=== PATIENT | male | born 1955 ===

== ENCOUNTER 2016-11-02 23:13 | Inpatient (IN) | payer BC ==
--- NOTE | 2016-11-03 00:06 | ED PDOC ---
Arrival/HPI - General Chief Complaint: Shortness Of Breath Time Seen by Provider: 11/02/16 23:32 Historian: Patient - History of Present Illness Narrative History of Present Illness (Text): 11/03/16 00:02 A 60 year old male whose past medical history includes, presents to the emergency department with 2 day duration throat pain. The patient notes that he went to his PMD's office today and received a flu shot. He also notes that he is experiencing near syncopal sensation and shortness of breath and chest discomfort. He denies fevers, chills, headache, abdominal pain, nausea, vomiting , diarrhea, back pain, dyspnea on exertion, or any other complaint. Time/Duration: Prior to Arrival Symptom Onset: Sudden Symptom Course: Unchanged Activities at Onset: Rest, Light Context: Home Past Medical History - Provider Review Nursing Documentation Reviewed: Yes - Psychiatric Hx Substance Use: No Family/Social History - Physician Review Nursing Documentation Reviewed: Yes Family/Social History: No Known Family HX Smoking Status: Never Smoked Hx Alcohol Use: No Hx Substance Use: No Allergies/Home Meds Allergies/Adverse Reactions: Allergies No Known Allergies Allergy (Verified 11/02/16 23:18) Home Medications: Home Meds Medication Instructions Recorded Confirmed Unobtainable 11/03/16 11/03/16 Review of Systems - Physician Review All systems were reviewed & negative as marked: Yes Physical Exam - Physical Exam Narrative Physical Exam (Text): - Review of Systems Constitutional: Normal. absent: Fatigue, Weight Change, Fevers Eyes: Normal ENT: (+) Sore throat Respiratory: (+) Near syncopal shortness of breath. absent: Cough, Sputum Cardiovascular: (+) Chest discomfort, near syncopal sensation. absent: Palpitations Gastrointestinal: Normal absent: Abdominal pain, Diarrhea, Nausea, Vomiting Genitourinary: Normal. absent: Dysuria, Frequency, Hematuria Musculoskeletal: Normal. absent: Arthralgias, Back Pain, Neck Pain Skin: Normal Neurological: Normal. absent: Focal Weakness Endocrine: Normal Hemo/Lymphatic: Normal Psychiatric: Normal - Physical exam Patient appears age appropriate, speaking full sentences without difficulty - Systems Exam Head: Present: Atraumatic, Normocephalic Pupils: Present: PERRL Extraocular Muscles: Present: EOMI Conjunctiva: Present: Normal Mouth: Present: Moist Mucous Membranes Neck: Present: Normal Range of Motion. No: MIDLINE TENDERNESS, Paraspinal Tenderness Respiratory/Chest: Present: Clear to Auscultation, Good Air Exchange. No: Respiratory Distress, Accessory Muscle Use, Tachypneic Cardiovascular: Present: Regular Rate and Rhythm, Normal S1, S2, Peripheral Pulses Present. No: Murmurs Abdomen: Present: Normal Bowel Sounds, No: Tenderness, Peritoneal Signs, Rebound, Guarding, Distention Back: Present: Normal Inspection. No: Midline Tenderness, Paraspinal Tenderness Upper Extremity: Present: Normal Inspection. No: Cyanosis, Edema Lower Extremity: Present: Normal Inspection. No: Edema Neurological: Present: GCS=15, Speech Normal, cranial nerves II through XII fully intact with no cerebellar abnormality, neuro-sensory fully intact. No focal neurological deficits. Skin: Present: Warm, Dry, Normal Color. No: Rashes Lymphatic: Present: OX3, NI, NC Psychiatric: Present: Alert, Oriented x 3, Normal Insight, Normal Concentration Vital Signs Reviewed: Yes Vital Signs Temp Pulse Resp BP Pulse Ox 11/02/16 23:25 20 98 11/02/16 23:18 99.0 F 101 H 25 H 143/92 H 100 Temperature: Afebrile Blood Pressure: Hypertensive Pulse: Tachycardic Respiratory Rate: Tachypneic Appearance: Positive for: Well-Appearing, Non-Toxic, Comfortable Pain Distress: None Mental Status: Positive for: Alert and Oriented X 3 - Systems Exam Pharnyx: Present: Normal. No: ERYTHEMA, EXUDATE, TONSILS ENLARGED, Peritonsilar Swelling, Uvular Deviation, Muffled/Hoarse Voice, Strider, Soft Palate/Uvular Edema Medical Decision Making ED Course and Treatment: 11/03/16 00:16 Impression: A 60 year old male with sore throat and near syncopal sensation, shortness of breath, and chest discomfort. On exam, no significant findings. Plan: -- Head/ Neck CT -- EKG -- Chest X-Ray -- Labs -- Blood Culture -- Cleocin and Decadron -- Reassess and disposition Progress Notes: EKG: Ordered, reviewed, and independently interpreted the EKG. Rate : 90 BPM Rhythm : NSR Interpretation : No ST-segment elevations CT Head Without Intravenous 1. No acute intracranial abnormality. 2. Incidental/non-acute findings are described above. Dictated and Authenticated by: Surinder Landon MD 11/03/2016 3:35 AM Eastern Time ([place] & [place]) CT Neck With Intravenous Contrast IMPRESSION: 1. No acute findings. 2. If symptoms persist, suggest direct visualization. Dictated and Authenticated by: Surinder Landon MD 11/03/2016 3:38 AM Eastern Time ([place] & [place]) 11/03/16 03:51: Chest xray shows no cardiomegaly, no pneumothorax, no effusion, no infiltrates. Read and interpreted by me. 11/03/16 03:59: Patient states that he does not have a PMD at [facility]. Discussed case with Dr. Cheung in detail, she accepts pt into her service. Patient is aware of and agrees with the plan. - Lab Interpretations Lab Results: 11/02/16 23:20 11/02/16 23:20 Lab Results 11/02/16 23:20: Sodium 142, Potassium 3.7, Chloride 104, Carbon Dioxide 27, Anion Gap 15, BUN 17, Creatinine 0.8, Est GFR ( Amer) > 60, Est GFR (Non- Af Amer) > 60, Random Glucose 96, Calcium 9.2, Total Bilirubin 0.5, AST 39, ALT 48, Alkaline Phosphatase 102, Lactate Dehydrogenase 417, Total Creatine Kinase 87, Troponin I < 0.01, NT-Pro-B Natriuret Pep 42.4, Total Protein 8.1, Albumin 4.5, Globulin 3.6, Albumin/Globulin Ratio 1.3 11/02/16 23:20: PT 9.9, INR 0.92 L, APTT 28.7 11/02/16 23:20: WBC 7.3, RBC 4.53, Hgb 13.7 L, Hct 40.0 L, MCV 88.3, MCH 30.2, MCHC 34.3, RDW 13.0, Plt Count 219, MPV 9.4, Gran % 57.0, Lymph % (Auto) 29.7, Howell % (Auto) 9.8 H, Eos % (Auto) 3.2, Baso % (Auto) 0.3, Gran # 4.16, Lymph # 2.2, Howell # 0.7 H, Eos # 0.2, Baso # 0.02 I have reviewed the lab results: Yes - RAD Interpretation Radiology Orders: 11/02/16 23:54 HEAD W/O CONTRAST [CT] Stat NECK SOFT TISSUE W/CONTRAST [CT] Stat CHEST PORTABLE [RAD] Stat - EKG Interpretation Interpreted by ED Physician: Yes Type: 12 lead EKG - Medication Orders Current Medication Orders: Discontinued Medications Dexamethasone (Decadron Inj) 10 mg IM STAT STA Stop: 11/02/16 23:55 Last Admin: 11/03/16 00:39 Dose: 10 mg Clindamycin Phosphate 600 mg/ (Sodium Chloride) 54 mls @ 108 mls/hr IVPB STAT STA PRN Reason: Protocol Stop: 11/03/16 00:24 Last Admin: 11/03/16 01:05 Dose: 108 mls/hr Iohexol (Omnipaque 350 100 Ml) Confirm Administered Dose 350 mg .ROUTE .[facility] Stop: 11/03/16 02:23 - Scribe Statement The provider has reviewed the documentation as recorded by the Scribe Eevlin Henry Provider Scribe Attestation: All medical record entries made by the Scribe were at my direction and personally dictated by me. I have reviewed the chart and agree that the record accurately reflects my personal performance of the history, physical exam, medical decision making, and the department course for this patient. I have also personally directed, reviewed, and agree with the discharge instructions and disposition Disposition/Present on Arrival - Present on Arrival Any Indicators Present on Arrival: No History of DVT/PE: No History of Uncontrolled Diabetes: No Urinary Catheter: No History of Decub. Ulcer: No History Surgical Site Infection Following: None - Disposition Have Diagnosis and Disposition been Completed?: Yes Diagnosis: Chest pain Disposition: HOSPITALIZED Disposition Time: 03:59 Patient Plan: Observation Condition: FAIR Discharge Instructions (ExitCare): Chest Pain (ED) Forms: [employer] ([employer])
[2016-11-03 00:41] LABS: BASO # 0.02 K/mm3 (0.0-2.0); BASO % 0.3 % (0.0-3.0); EOS # 0.2 (0.0-0.7); EOS % 3.2 % (1.5-5.0); GRAN # 4.16 (1.4-6.5); LYMPH # 2.2 (1.2-3.4); LYMPH % 29.7 % (22.0-35.0); MEAN CELL VOLUME 88.3 fl (80.0-105.0); MEAN CORPUSCULAR HEMOGLOBIN 30.2 pg (25.0-35.0); MEAN CORPUSCULAR HGB CONC 34.3 g/dl (31.0-37.0); MEAN PLATELET VOLUME 9.4 fl (7.0-11.0); MONO # 0.7 (0.1-0.6); MONO % 9.8 % (1.0-6.0); WHITE BLOOD COUNT 7.3 10^3/ul (4.5-11.0)
[2016-11-03 00:47] LABS: ALB/GLOB RATIO 1.3 (1.1-1.8); ALKALINE PHOSPHATASE 102 U/L (38-126); ALT/SGPT 48 U/L (7-56); AST/SGOT 39 U/L (17-59); BILIRUBIN,TOTAL 0.5 mg/dL (0.2-1.3); BLOOD UREA NITROGEN 17 mg/dL (7-21); CALCIUM 9.2 mg/dL (8.4-10.5); CARBON DIOXIDE 27 mmol/L (21-33); CHLORIDE 104 mmol/L (98-107); GFR AFRICAN-AMERICAN > 60; GLUCOSE,RANDOM 96 mg/dL (70-110); POTASSIUM 3.7 mmol/L (3.6-5.0); SODIUM 142 mmol/L (132-148); TOTAL PROTEIN 8.1 g/dL (5.8-8.3)
[2016-11-03 00:48] LABS: INR 0.92 (0.93-1.08); PARTIAL THROMBOPLASTIN TIME 28.7 Seconds (23.7-30.8)
[2016-11-03 01:04] LABS: TROPONIN I < 0.01 ng/mL
[2016-11-03] MEDS ORDERED: Iohexol 350 MG/100 ML VIAL ONE (02:22)
--- NOTE | 2016-11-03 03:35 | CT ---
EXAM: CT Head Without Intravenous Contrast CLINICAL HISTORY: 60 years old, male; Signs and symptoms; Syncope and collapse; Additional info: Near syncope TECHNIQUE: Axial computed tomography images of the head/brain without intravenous contrast. All CT scans at this facility use one or more dose reduction techniques, viz.: automated exposure control; ma/kV adjustment per patient size (including targeted exams where dose is matched to indication; i.e. head); or iterative reconstruction technique. COMPARISON: No relevant prior studies available. FINDINGS: Brain: No intracranial hemorrhage. No mass. No definite edema. Ventricles: No hydrocephalus. Bones/joints: No acute fracture. Soft tissues: Unremarkable. Sinuses: Scattered minimal mucosal thickening. Mastoid air cells: No mastoid effusion. Orbits: Unremarkable as visualized. IMPRESSION: 1. No acute intracranial abnormality. 2. Incidental/non-acute findings are described above.
--- NOTE | 2016-11-03 03:38 | CT ---
EXAM: CT Neck With Intravenous Contrast CLINICAL HISTORY: 60 years old, male; Pain; Throat pain; Additional info: Sore throat TECHNIQUE: Axial computed tomography images of the neck with intravenous contrast. All CT scans at this facility use one or more dose reduction techniques, viz.: automated exposure control; ma/kV adjustment per patient size (including targeted exams where dose is matched to indication; i.e. head); or iterative reconstruction technique. Coronal and sagittal reformatted images were created and reviewed. CONTRAST: 96 mL of OMNI 350 administered intravenously. COMPARISON: No relevant prior studies available. FINDINGS: Limitations: Motion artifact - mild. Nasopharynx: Unremarkable. Oropharynx: No significant tonsillar enlargement. No peritonsillar abscess. Hypopharynx: Unremarkable. Larynx: Unremarkable. Normal epiglottis. Trachea: Unremarkable. Retropharyngeal space: Unremarkable. Submandibular/parotid glands: Unremarkable. Glands are normal in size. Thyroid: No enlarged or calcified nodules. Bones/joints: Mild degenerative changes of spine. No acute fracture. Soft tissues: Unremarkable. Vasculature: No acute findings. Lymph nodes: No pathologically enlarged lymph nodes. Sinuses: Scattered minimal mucosal thickening. Lung apices: Minimal bullous changes. IMPRESSION: 1.No acute findings. 2. If symptoms persist, suggest direct visualization.
--- NOTE | 2016-11-03 09:43 | RAD ---
HISTORY: cough COMPARISON: No prior. FINDINGS: LUNGS: No active pulmonary disease. PLEURA: No significant pleural effusion identified, no pneumothorax apparent. CARDIOVASCULAR: Normal. OSSEOUS STRUCTURES: No significant abnormalities. VISUALIZED UPPER ABDOMEN: Normal. OTHER FINDINGS: None. IMPRESSION: No active disease.
[2016-11-03] MEDS ORDERED: cefTRIAXone 1 gm 100 ML IVPB SCH (10:00)
[2016-11-03 10:15] LABS: CHOLESTEROL 222 mg/dL (130-200)
[2016-11-03 10:28] LABS: TROPONIN I < 0.01 ng/mL
[2016-11-03] MEDS: cefTRIAXone 1 gm 1 GM/100 ML BAG IVPB SCH (10:35)
[2016-11-03 13:09] VITALS: BMI 31.7
--- NOTE | 2016-11-03 16:50 | CARD ---
APPROVED REPORT EKG Measurement Heart [id number] [id number] <Conclusion> Normal sinus rhythm Left axis deviation
[2016-11-03] MEDS: Albuterol-Ipratrop 3 mg / 0.5 (3 ml) UD IH SCH (20:08)
--- NOTE | 2016-11-03 21:59 | CON ---
DATE: 11/03/2016 CONSULT SERVICE: Cardiology. CARDIOLOGY PHYSICIAN: Dr. Barbara Jennings. REASON FOR THE CONSULTATION: Followup shortness of breath, cough, chest pain on coughing. 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 After this, the patient experienced more shortness of breath, more neck pain and started chest pain and coughing. Denies any chest pain prior to this. Denies any dyspnea on exertion or shortness of breath on exertion. PAST MEDICAL HISTORY: Nothing significant. CURRENT MEDICATIONS AT HOME: Denies any medications taking on a regular basis. SOCIAL HISTORY: Denies smoking. Beer, 1-2 cans at the weekend. 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 FAMILY HISTORY: No significant history of coronary artery disease. REVIEW OF SYSTEMS: As per HPI. PHYSICAL EXAMINATION VITAL SIGNS: As follows: Temp 99, heart rate 78 and blood pressure 118/79. HEENT: PERRLA. Extraocular muscles intact. NECK: Supple. No carotid bruits. No thyromegaly. CHEST: Clear to auscultation. HEART: S1 and S2 regular. ABDOMEN: Soft. EXTREMITIES: Clubbing or cyanosis negative. LABORATORY DATA: Blood work up as follows; WBC 7.3, hemoglobin 13, hematocrit 40.0, platelet count 219. Chemistries shows sodium 140, potassium 3.0, chloride 104, carbon dioxide 27, anion gap of 15, BUN 17, creatinine 0.8. Troponin 0.01. EKG shows normal sinus, no acute ST-T changes noted, left axis deviation, left atrial enlargement, heart rate of 90. IMPRESSION: Rule out upper respiratory tract infection, rule out bronchitis, so far no evidence of acute myocardial infarction. RECOMMENDATION: We will get second set of troponin. We will get echo to assess LV function. Because of multiple results, suggest stress test as an outpatient. Discussed with the patient and arrangement has made to do a stress test in 2 weeks as an outpatient. If the second troponin which ordered now becomes negative and flat, we will discontinue telemetry. Consider pulmonary evaluation and pulmonary workup. We will follow with you. Thank you Dr. Russell for providing me the opportunity in taking care of Luis Shields. Barbara Jennings MD [facility] # [id number]
[2016-11-04] MEDS: Albuterol-Ipratrop 3 mg / 0.5 (3 ml) UD IH SCH ×4 (01:14→21:00)
--- NOTE | 2016-11-04 03:01 | CON ---
PULMONARY CONSULT DATE: 11/03/2016 REFERRING PHYSICIAN: Dr. Russell. REASON FOR CONSULT: Cough, shortness of breath, fever. HISTORY OF PRESENT ILLNESS: This is a 60-year-old gentleman without any significant past medical history, been having rhinitis, cough, shortness of breath last 2 days. Apparently, he received flu shot recently. CAT scan of the neck and head done, which is unremarkable other than may be questionable some sinusitis. No nausea, no vomiting, no diarrhea. No leg pain or leg swelling. Does not know if he snore, daytime sleepy and tired. PAST MEDICAL HISTORY: There is no cardiopulmonary disease. ALLERGIES: NONE KNOWN. SOCIAL HISTORY: He is a smoker. Denied any alcohol use. FAMILY HISTORY: No significant cardiopulmonary disease reported. MEDICATIONS: He is on Lipitor 10 mg daily, Pepcid 40 mg daily, Rocephin 1 g daily. He did received Decadron 10 mg in ER on admission and also clindamycin 600 mg 1 dose. REVIEW OF SYSTEMS: Has some headache, rhinitis, facial discomfort, short of breath. No specified chest pain. No abdominal pain. no dysuria, no leg pain or leg swelling, does not know if he snores, but daytime sleepy. PHYSICAL EXAMINATION: GENERAL: In no acute distress. VITAL SIGNS: Temperature is 98, heart rate 84, respiratory rate is 18, blood pressure 112/88, and pulse ox 98% on 2 L nasal cannula. HEENT: Moist mucous membrane. Crowded airway. Mallampati score is IV. Nasal mucosa is mildly erythematous. Mild maxillary area tenderness. LUNGS: Has a few scattered rhonchi, overall fair air flow. HEART: S1 and S2. ABDOMEN: Soft and nontender. No organomegaly. EXTREMITIES: No edema. NEUROLOGIC: Awake and alert. Follows simple command. LABORATORY DATA: Shows hemoglobin 13.7, hematocrit 47.0, WBC 7.3, platelet count is 219. INR is 0.92. PTT is 29. Sodium 142, potassium 2.7, chloride 104, bicarbonate 27, BUN 17, creatinine 0.8, glucose 96, calcium 9.2, total bilirubin 0.5, AST 39, ALT 48, alkaline phosphatase is 102, LDH 360, proBNP 42, albumin 4.5, cholesterol is 222, TSH is 0.11. IMPRESSION AND PLAN: Seems like early sinusitis and bronchiolitis, may have a component of sleep apnea syndrome, hyperlipidemia. I agreed to rule out cardiac component of shortness of breath. We will continue antibiotics. Add p.o. prednisone, inhaled bronchodilators, gastric prophylaxis, DVT prophylaxis. We will recommend outpatient PFT and sleep study, asked the patient to stop smoking, could be discharged after cardiac workup if it is negative. The patient is urged to stop smoking. Thank you and we will follow with you. Barbara Cerna MD
--- NOTE | 2016-11-04 03:33 | CP.PCM.PCO ---
Physician Communication Note - Physician Communication Note Physician Communication Note: chart reviewed full consult to follow
[2016-11-04 10:52] VITALS: RESP 20
[2016-11-04] MEDS: cefTRIAXone 1 gm 1 GM/100 ML BAG IVPB SCH (11:25)
--- NOTE | 2016-11-04 13:41 | CARD ---
APPROVED REPORT EXAM: Two-dimensional and M-mode echocardiogram with Doppler and color Doppler. INDICATION Chest Pain LVFX 2D DIMENSIONS Left Atrium (2D)3.7 (1.6-4.0cm)IVSd1.1 (0.7-1.1cm) Aortic Root (2D)3.6 (2.0-3.7cm)LVDd5.0 (3.9-5.9cm) PWd1.2 (0.7-1.1cm)LVDs3.5 (2.5-4.0cm) FS (%) 30.9 %LVEF (%)58.4 (>50%) M-Mode DIMENSIONS Aortic Root3.60 (2.2-3.7cm)Aortic Cusp Exc.2.00 (1.5-2.0cm) Aortic Valve AoV Peak Vesbewcy183.0cm/José Miguel Peak GR.12mmHg Mitral Valve MV E Sofabaav50.4cm/sMV A Uexhuyir43.3cm/sE/A ratio1.4 TDI Lateral E' Peak V10.10cm/sMedial E' Peak V7.51cm/sE/Lateral E'9.3 E/Medial E'12.6 Pulmonary Valve PV Peak Zjiuneja61.9cm/sPV Peak Grad.3mmHg Tricuspid Valve TR Peak Fniczhsd852yq/sRAP [id number] Peak Gr.36mmHg [id number] LEFT VENTRICLE The left ventricle is normal size. There is borderline concentric left ventricular hypertrophy. The left ventricular function is normal.EF-55-60% There is normal LV segmental wall motion. The left ventricular diastolic function is normal. No left ventricle thrombus noted on this study. There is no ventricular septal defect visualized. There is no left ventricular aneurysm. There is no mass noted in the left ventricle. RIGHT VENTRICLE The right ventricle is normal size. There is normal right ventricular wall thickness. The right ventricular systolic function is normal. ATRIA The left atrium size is normal. The right atrium size is normal. The interatrial septum is intact with no evidence for an atrial septal defect. AORTIC VALVE The aortic valve is thickened but opens well. No aortic regurgitation is present. There is no aortic valvular stenosis. There is no aortic valvular vegetation. MITRAL VALVE The mitral valve is thickened but opens well. Mitral regurgitation is mild. There is no mitral valve stenosis. There is no evidence of mitral valve prolapse. TRICUSPID VALVE The tricuspid valve leaflets are thickened , but open well. There is mild tricuspid regurgitation.RVSP-46 mmof hg. There is no tricuspid valve stenosis. There is no tricuspid valve prolapse or vegetation. PULMONIC VALVE The pulmonary valve is normal in structure. There is no pulmonic valvular regurgitation. There is no pulmonic valvular stenosis. GREAT VESSELS The aortic root is normal in size. The ascending aorta is normal in size. The pulmonary artery is normal. The IVC is normal in size and collapses >50% with inspiration. PERICARDIAL EFFUSION There is no pleural effusion. There is no pericardial effusion. <Conclusion> NOrmal chamber Size. EF-55-60% Mitral regurgitation is mild. There is mild tricuspid regurgitation.RVSP-46 mmof hg. There is no pericardial effusion. The IVC is normal in size and collapses >50% with inspiration. No Vegetation or thrombus noted.
[2016-11-04 16:30] VITALS: BP 107/73; PULSE 87; TEMP 98.1; O2SAT 98
[2016-11-04] MEDS: Fluticasone Nasal 50 mcg/Spray NS SCH (16:45)
--- NOTE | 2016-11-04 17:35 | CP.PCM.CON ---
<Salima Cardozo - Last Filed: 11/04/16 18:09> History of Present Illness - History of Present Illness History of Present Illness: General Surgery Consult for Dr. Lewis 60M presents with no past medical history for 2 day duration of throat pain. General surgery consulted for hemorrhoids. Patient states he had a colonoscopy 2 months ago and doctor found two hemorrrhoids. Patient was referred to a surgeon at [facility] to do a laser removal of the hemorrhoid. Patient states he's had hemorrhoids for years and the hemorrhoids make it difficult for bowel movements. Patient states he only wants surgery at this hospital if they can do laser hemorrhoid treatment or "burning" of the hemorrhoid. PMH: HTN, HLD PSH: right wrist repair of tendon, hemorrhoidectomy x 2, R knee arthroscopy/ aspiration (Patient does not remember). Past Patient History - Past Social History Smoking Status: Former Smoker - CARDIAC Hx Hypercholesterolemia: Yes Hx Hypertension: Yes - MUSCULOSKELETAL/RHEUMATOLOGICAL Hx Arthritis: Yes Hx Falls: No - PSYCHIATRIC Hx Depression: Yes Hx Substance Use: No Meds Allergies/Adverse Reactions: Allergies Allergy/AdvReac Type Severity Reaction Status Date / Time No Known Allergies Allergy Verified 11/02/16 23:18 - Medications Medications: Current Medications Albuterol/Ipratropium (Duoneb 3 Mg/0.5 Mg (3 Ml) Ud) 3 ml IH [id number] [facility] Last Admin: 11/04/16 13:36 Dose: 3 ml Atorvastatin Calcium (Lipitor) 10 mg PO DIN KAYDEN Doxycycline Hyclate (Doryx) 100 mg PO Q12 KAYDEN PRN Reason: Protocol Last Admin: 11/04/16 11:24 Dose: 100 mg Famotidine (Pepcid) 40 mg PO HS [facility] Last Admin: 11/03/16 22:05 Dose: 40 mg Fluticasone Propionate (Flonase) 1 actuation NS DAILY [facility] Last Admin: 11/04/16 16:45 Dose: 1 dose Ceftriaxone Sodium (Rocephin 1 Gram Ivpb) 1 gm in 100 mls @ 100 mls/hr IVPB DAILY [facility]AY[facility] PRN Reason: Protocol Last Admin: 11/04/16 11:25 Dose: 100 mls/hr Montelukast Sodium (Singulair) 10 mg PO HS [facility] Last Admin: 11/03/16 21:48 Dose: 10 mg Prednisone (Prednisone Tab) 20 mg PO DAILY [facility] Last Admin: 11/04/16 11:25 Dose: 20 mg Physical Exam - Constitutional Appears: Non-toxic - Head Exam Head Exam: NORMAL INSPECTION - Eye Exam Eye Exam: EOMI, Normal appearance - ENT Exam ENT Exam: Mucous Membranes Moist - Neck Exam Neck exam: Positive for: Full Rom - Respiratory Exam Respiratory Exam: Clear to Auscultation Bilateral, NORMAL BREATHING PATTERN. absent: Accessory Muscle Use, Respiratory Distress - Cardiovascular Exam Cardiovascular Exam: REGULAR RHYTHM. absent: Bradycardia, Tachycardia - GI/Abdominal Exam GI & Abdominal Exam: Normal Bowel Sounds, Soft. absent: Diminished Bowel Sounds , Tenderness - Rectal Exam Rectal Exam: Hemorrhoids. absent: Black Stool Additional comments: two internal hemorroids felt on KENDALL - Exam Exam: NORMAL INSPECTION - Extremities Exam Extremities exam: Positive for: full ROM, normal inspection. Negative for: calf tenderness, pedal edema - Neurological Exam Neurological exam: Alert, Normal Gait, Oriented x3 - Psychiatric Exam Psychiatric exam: Normal Affect, Normal Mood - Skin Skin Exam: Dry, Intact, Normal Color, Warm Results - Vital Signs Recent Vital Signs: Last Vital Signs Temp 98.1 F 11/04/16 16:28 Pulse 87 11/04/16 16:28 Resp 20 11/04/16 16:28 BP 107/73 11/04/16 16:28 Pulse Ox 98 11/04/16 16:28 - Labs Result Diagrams: 11/02/16 23:20 11/02/16 23:20 Assessment & Plan - Assessment and Plan (Free Text) Assessment: 60M hemorrhoids Plan: stool softeners sitz baths PRN c/w current medical management c/w pain control Salima Cardozo DO PGY1 - Date & Time Date: 11/04/16 Time: 17:35 <Jeancarlos Lewis - Last Filed: 11/06/16 10:20> Results - Vital Signs Recent Vital Signs: Last Vital Signs Temp 98.1 F 11/04/16 18:49 Pulse 87 11/04/16 18:49 Resp 20 11/04/16 18:49 BP 107/73 11/04/16 18:49 Pulse Ox 98 11/04/16 18:49 - Labs Result Diagrams: 11/05/16 08:00 11/05/16 08:00 Labs: Laboratory Results - last 24 hr 11/05/16 08:00 Vitamin B12 236 L Folate 9.1 Assessment & Plan - Assessment and Plan (Free Text) Assessment: Dx Constipation/Int Hemorrhoids Patient has no interest in surgery here(?Insuranc) This consult done under my direct supervision Francisco Lewis MD FACS
--- NOTE | 2016-11-04 17:41 | CP.PCM.CON ---
History of Present Illness - History of Present Illness History of Present Illness: Infectious Disease Consultation: November 04, 2016 60 yo male with presentation of sore throat to his PMDs office. He was given a flu shot as part of that visit. The patient developed cough, shortness of breath, neck pain, throat pain, and sore throat shortly after the flu shot was given. 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 He denies any significant medical history. He does not need to take any medications on an ongoing basis. Currently started on Rocephin for antibiotic coverage. PMHx: none given PSHx: none given Allergies: NKDA Social Hx: No tobacco or illicit drug use. Social EtOH use. Active Medications Albuterol/Ipratropium (Duoneb 3 Mg/0.5 Mg (3 Ml) Ud) 3 ml IH [id number] [facility] Last Admin: 11/04/16 13:36 Dose: 3 ml Atorvastatin Calcium (Lipitor) 10 mg PO DIN [facility] Doxycycline Hyclate (Doryx) 100 mg PO Q12 [facility] PRN Reason: Protocol Last Admin: 11/04/16 11:24 Dose: 100 mg Famotidine (Pepcid) 40 mg PO HS [facility] Last Admin: 11/03/16 22:05 Dose: 40 mg Fluticasone Propionate (Flonase) 1 actuation NS DAILY [facility] Last Admin: 11/04/16 16:45 Dose: 1 dose Ceftriaxone Sodium (Rocephin 1 Gram Ivpb) 1 gm in 100 mls @ 100 mls/hr IVPB DAILY [facility] PRN Reason: Protocol Last Admin: 11/04/16 11:25 Dose: 100 mls/hr Montelukast Sodium (Singulair) 10 mg PO HS [facility] Last Admin: 11/03/16 21:48 Dose: 10 mg Prednisone (Prednisone Tab) 20 mg PO DAILY [facility] Last Admin: 11/04/16 11:25 Dose: 20 mg Family Hx: none given ROS: Positive cough, chest pain, throat pain, and throat pain. No fevers, chills, nausea, vomiting, diarrhea. NO abdominal pain. No melena, hematuria, hematemesis, hematochezia. No loss of consciousness. No SOB. Past Patient History - Past Social History Smoking Status: Former Smoker - CARDIAC Hx Hypercholesterolemia: Yes Hx Hypertension: Yes - MUSCULOSKELETAL/RHEUMATOLOGICAL Hx Arthritis: Yes Hx Falls: No - PSYCHIATRIC Hx Depression: Yes Hx Substance Use: No Meds Allergies/Adverse Reactions: Allergies Allergy/AdvReac Type Severity Reaction Status Date / Time No Known Allergies Allergy Verified 11/02/16 23:18 - Medications Medications: Current Medications Albuterol/Ipratropium (Duoneb 3 Mg/0.5 Mg (3 Ml) Ud) 3 ml IH [id number] [facility] Last Admin: 11/04/16 13:36 Dose: 3 ml Atorvastatin Calcium (Lipitor) 10 mg PO DIN [facility] Doxycycline Hyclate (Doryx) 100 mg PO Q12 [facility] PRN Reason: Protocol Last Admin: 11/04/16 11:24 Dose: 100 mg Famotidine (Pepcid) 40 mg PO HS [facility] Last Admin: 11/03/16 22:05 Dose: 40 mg Fluticasone Propionate (Flonase) 1 actuation NS DAILY [facility] Last Admin: 11/04/16 16:45 Dose: 1 dose Ceftriaxone Sodium (Rocephin 1 Gram Ivpb) 1 gm in 100 mls @ 100 mls/hr IVPB DAILY [facility] PRN Reason: Protocol Last Admin: 11/04/16 11:25 Dose: 100 mls/hr Montelukast Sodium (Singulair) 10 mg PO HS [facility] Last Admin: 11/03/16 21:48 Dose: 10 mg Prednisone (Prednisone Tab) 20 mg PO DAILY [facility] Last Admin: 11/04/16 11:25 Dose: 20 mg Physical Exam - Constitutional Appears: Non-toxic, No Acute Distress - Head Exam Head Exam: ATRAUMATIC, NORMOCEPHALIC - Eye Exam Eye Exam: EOMI, PERRL Pupil Exam: NORMAL ACCOMODATION, PERRL - ENT Exam ENT Exam: Mucous Membranes Moist, Normal External Ear Exam, TM's Normal Bilaterally - Neck Exam Neck exam: Positive for: Full Rom, Normal Inspection - Respiratory Exam Respiratory Exam: Clear to Auscultation Bilateral, NORMAL BREATHING PATTERN. absent: Rales, Rhonchi, Wheezes - Cardiovascular Exam Cardiovascular Exam: REGULAR RHYTHM, RRR, +S1, +S2 - GI/Abdominal Exam GI & Abdominal Exam: Normal Bowel Sounds, Soft. absent: Distended, Tenderness - Extremities Exam Extremities exam: Positive for: full ROM, normal inspection - Neurological Exam Neurological exam: Alert, CN II-XII Intact, Oriented x3 - Psychiatric Exam Psychiatric exam: Normal Affect, Normal Mood - Skin Skin Exam: Intact, Normal Color Results - Vital Signs Recent Vital Signs: Last Vital Signs Temp 98.1 F 11/04/16 16:28 Pulse 87 11/04/16 16:28 Resp 20 11/04/16 16:28 BP 107/73 11/04/16 16:28 Pulse Ox 98 11/04/16 16:28 - Labs Result Diagrams: 11/02/16 23:20 11/02/16 23:20 Assessment & Plan - Assessment and Plan (Free Text) Assessment: 60 yo male with presentation of cough, sore throat, chest pain. He received the influenza shot a day prior to hospitalization. Supportive care. On Rocephin for antibiotic therapy. No leukocytosis. No electrolyte abnormalities. Current Chest X-ray with no signs of active disease. Only scattered mucosal thickening of the sinuses on CT scan of the head but no other acute findings. CT of the neck showed no acute issues. If troponins negative and cleared by Cardiology, would consider discharge with up to 10 days of oral antibiotics such as Keflex 500mg PO TID. Moses cultures sent. While in hospital, maintain IV Rocephin. Thank you for allowing me to participate in the care of the patient, we will follow with you.
--- NOTE | 2016-11-04 20:09 | PN ---
DATE: SUBJECTIVE: The patient is 60 years old male. The patient is seen and examined on the bedside, just came back from echocardiography. No nausea, vomiting or diarrhea. No hematuria or hematochezia. Feeling better. No chest pain. Fatigue is better. PHYSICAL EXAMINATION VITAL SIGNS: Temperature 98.0, pulse 75, blood pressure 101/72, respiratory rate 20. HEENT: Head is normocephalic and atraumatic. Eyes, PERRLA. Extraocular muscles are intact. Conjunctivae clear. Nose patent. Mucous membranes moist. NECK: Supple. No carotid bruit. No JVD or thyromegaly. CHEST: Bilaterally symmetrical. HEART: S1, S2 positive. LUNGS: Clear to auscultation. ABDOMEN: Soft. Bowel sounds positive. No organomegaly. EXTREMITIES: No edema. No cyanosis. NEUROLOGICAL: The patient is awake and alert. Moving all four extremities. No focal deficits. LABORATORY DATA: White blood cell 7.3, hemoglobin 13.7, hematocrit 40, platelets 219. Sodium 142, potassium 3.7, BUN 17, creatinine 0.8, glucose 96. MEDICATIONS: Doxycycline, DuoNeb, Flonase, Lipitor, Pepcid, prednisone tapering dose, ceftriaxone, and Singulair. ASSESSMENT AND PLAN: Mr. Luis Shields is 60 years old male with hypercholesterolemia, started on Lipitor, hyperthyroidism, anemia, came with chest pain, seen by Dr. Jennings, Game Advisor and Dr. Cerna, Slitter And Cutter Operator. The patient has sinusitis and bronchitis, sleep apnea syndrome. The patient is getting antibiotic, doxycycline, prednisone, and the patient is feeling fine. Dr. Cerna recommended outpatient PFT and case study. Urged to quit smoking. The patient went for echocardiography today, results are pending. Got troponin. Dr. Jennings is suggesting stress test as outpatient. Gastrointestinal and deep venous thrombosis prophylaxis and we will follow up. Sujey Russell MD MTDMeme
--- NOTE | 2016-11-04 22:09 | PN ---
REASON FOR CONSULTATION: Follow up cardiac evaluation, shortness of breath, cough and chest pain on coughing. SUBJECTIVE: No chest pain, no shortness of breath, no palpitation and want to go home. OBJECTIVE: Not in apparent distress. PHYSICAL EXAMINATION: VITAL SIGNS: Temperature afebrile, heart rate 87, and blood pressure 101/72. HEENT: PERRLA. Extraocular muscles intact. NECK: Supple. No carotid bruit. No thyromegaly. CHEST: Clear to auscultation. HEART: S1 and S2 regular. ABDOMEN: Soft. EXTREMITIES: Clubbing and cyanosis negative. LABORATORY DATA: Blood workup as follows: WBC , hemoglobin 13.7, hematocrit 40, and platelet count 219. Chemistry showed sodium 140, potassium 3.0, chloride 104, carbon dioxide 23, anion gap of 15, BUN 17, and creatinine 0.8, TSH 0.11. IMPRESSION: Atypical chest pain, so far no evidence of acute myocardial infarction, probably acute bronchitis. Given the multiple risk factors of coronary artery disease, echo today and stress test as outpatient. to get a stress test as outpatient. We will follow with you. Okay to be discharged from cardiology point of view. We will review the echo when it is done and his stress test has been scheduled as an outpatient in 2 weeks. We will follow with you. Thank you Dr. Russell for providing me the opportunity in taking care of the patient. Barbara Jennings MD
--- NOTE | 2016-11-04 22:36 | PN ---
DATE: 11/04/2016 PULMONARY PROGRESS NOTE REFERRING PHYSICIAN: Sujey Russell MD SUBJECTIVE: He is lying in the bed. Feels better. Decreased rhinitis. Decreased cough. Post-nasal drip. No nausea, no vomiting, no diarrhea. No leg pain and no leg swelling. Admit to the floor during nighttime. PHYSICAL EXAMINATION GENERAL: In no acute distress. VITAL SIGNS: Temperature is 98, heart rate is 87, respiratory rate is 20, blood pressure 107/73, and pulse ox 98% on 2 L nasal cannula. HEENT: Moist mucous membrane. Crowded airway. Mallampati score is IV. NECK: Supple. No JVD. LUNGS: Has a fair airway with rhonchi. HEART: S1 and S2. ABDOMEN: Soft and nontender. No organomegaly. EXTREMITIES: No edema. NEUROLOGIC: Awake and alert. Follows simple command. MEDICATIONS: He is on doxycycline 100 mg twice a day, DuoNeb q. 6 hours, Flonase one spray each nostril daily, Lipitor 10 mg daily, Pepcid 40 mg daily, prednisone 20 mg daily, Rocephin 1 g daily, and Singulair 10 mg daily. LABORATORY DATA: Shows hemoglobin 13.7, hematocrit 40.0, WBC 7.3, and platelet count is 219. He had echocardiogram done today that shows right ventricular systolic pressure is 46, LV ejection fraction 55 to 60, mild valvular heart disease. IMPRESSION AND PLAN: Sinusitis, acute bronchiolitis, may have a component of sleep apnea syndrome, hyperlipidemia, also have hemorrhoid, requesting surgical consult. We will continue p.o. and inhale bronchodilator. Continue antibiotics. Sleep apnea precautions, avoid sedation, outpatient PFT and sleep study. We request surgical team to take a look at, he may need taken care of hemorrhoids as an outpatient. Barbara Cerna MD
[2016-11-05] MEDS: Albuterol-Ipratrop 3 mg / 0.5 (3 ml) UD IH SCH ×2 (02:29→07:33)
[2016-11-05 08:29] LABS: HEMATOCRIT 41.1 % (42.0-52.0); MEAN CELL VOLUME 88.8 fl (80.0-105.0); MEAN CORPUSCULAR HEMOGLOBIN 30.2 pg (25.0-35.0); MEAN CORPUSCULAR HGB CONC 34.1 g/dl (31.0-37.0); MEAN PLATELET VOLUME 9.4 fl (7.0-11.0); RED CELL DISTRIBUTION WIDTH 13.3 % (11.5-14.5); WHITE BLOOD COUNT 6.7 10^3/ul (4.5-11.0)
[2016-11-05 08:41] LABS: BLOOD UREA NITROGEN 18 mg/dL (7-21); CALCIUM 9.2 mg/dL (8.4-10.5); CARBON DIOXIDE 28 mmol/L (21-33); CHLORIDE 103 mmol/L (98-107); GFR AFRICAN-AMERICAN > 60; GLUCOSE,RANDOM 99 mg/dL (70-110); POTASSIUM 3.4 mmol/L (3.6-5.0); SODIUM 144 mmol/L (132-148)
[2016-11-05 09:04] LABS: IRON 122 ug/dL (45-180)
[2016-11-05] MEDS: cefTRIAXone 1 gm 1 GM/100 ML BAG IVPB SCH (09:54)
[2016-11-05] MEDS: Fluticasone Nasal 50 mcg/Spray NS SCH (09:56)
[2016-11-05] MEDS ORDERED: POLYETHYLENE GLYCOL 3350 17 GM/Dose PACKET PO SCH (10:00)
[2016-11-05 13:31] LABS: FOLATE 9.1 ng/mL
--- NOTE | 2016-11-05 17:28 | PN ---
DATE: 11/05/2016 REASON FOR CONSULTATION: Followup cardiac evaluation, shortness of breath, chest pain on coughing, nonischemic. SUBJECTIVE: No chest pain, no shortness of breath, no palpitation, wants to go home. OBJECTIVE: GENERAL: Not in apparent distress, lying flat in the bed. VITAL SIGNS: Temperature afebrile, heart rate 87. HEENT: PERRLA. Extraocular muscles intact. NECK: Supple. No carotid bruit. No thyromegaly. CHEST: Clear to auscultation. HEART: S1 and S2 regular. ABDOMEN: Soft. EXTREMITIES: Clubbing and cyanosis negative. LABORATORY DATA: Blood workup as follows: WBC 12, hemoglobin 14, hematocrit 41.1, platelet count 208. Chemistry shows sodium 144, potassium 3.4, chloride 103, carbon dioxide 28, anion gap of 16, BUN 18, creatinine 0.7. TSH 0.11. The patient had an echocardiogram done yesterday that shows normal chamber size, ejection fraction of 55% to 60%, mild mitral regurgitation and moderate tricuspid regurgitation, and RV systolic pressure of 46. No precordial , no vegetation. IMPRESSION: A 60-year-old male with hypercholesterolemia, admitted with chest pain atypical, is still coughing possibly secondary to upper respiratory tract infection. So far no evidence of acute myocardial infarction, echo within normal limits. RECOMMENDATIONS: Continue workup as per pulmonary. Consider because of risk factor, schedule for stress test as outpatient. The patient is okay to be discharged from cardiology point of view. Thank you Dr. Russell for providing us the opportunity in taking care of the patient, Cornelius Smith. Barbara Jennings MD
--- NOTE | 2016-11-05 17:52 | CP.PCM.PCO ---
Physician Communication Note - Physician Communication Note Physician Communication Note: No change in surgery recommendations for Hemorrhoids
--- NOTE | 2016-11-05 18:43 | CP.PCM.DIS ---
Provider - Provider Date of Admission: 11/04/16 16:26 Attending physician: Sujey Russell MD Primary care physician: Roland Bai MD Consults: dc for 11/05/16 A 60 year old male whose past medical history includes, presents to the emergency department with 2 day duration throat pain. The patient notes that he went to his PMD's office today and received a flu shot. He also notes that he is experiencing near syncopal sensation and shortness of breath and chest discomfort. He denies fevers, chills, headache, abdominal pain, nausea, vomiting , diarrhea, back pain, dyspnea on exertion, or any other complaint. Time Spent in preparation of Discharge (in minutes): 50 Hospital Course - Lab Results Lab Results: Most Recent Lab Values WBC 6.7 10^3/ul (4.5-11.0) 11/05/16 08:00 RBC 4.63 10^6/uL (3.5-6.1) 11/05/16 08:00 Hgb 14.0 g/dL (14.0-18.0) 11/05/16 08:00 Hct 41.1 % (42.0-52.0) L 11/05/16 08:00 MCV 88.8 fl (80.0-105.0) 11/05/16 08:00 MCH 30.2 pg (25.0-35.0) 11/05/16 08:00 MCHC 34.1 g/dl (31.0-37.0) 11/05/16 08:00 RDW 13.3 % (11.5-14.5) 11/05/16 08:00 Plt Count 208 10^3/uL (120.0-450.0) 11/05/16 08:00 MPV 9.4 fl (7.0-11.0) 11/05/16 08:00 Gran % 57.0 % (50.0-68.0) 11/02/16 23:20 Lymph % (Auto) 29.7 % (22.0-35.0) 11/02/16 23:20 [place] % (Auto) 9.8 % (1.0-6.0) H 11/02/16 23:20 Eos % (Auto) 3.2 % (1.5-5.0) 11/02/16 23:20 Baso % (Auto) 0.3 % (0.0-3.0) 11/02/16 23:20 Gran # 4.16 (1.4-6.5) 11/02/16 23:20 Lymph # 2.2 (1.2-3.4) 11/02/16 23:20 [place] # 0.7 (0.1-0.6) H 11/02/16 23:20 Eos # 0.2 (0.0-0.7) 11/02/16 23:20 Baso # 0.02 K/mm3 (0.0-2.0) 11/02/16 23:20 PT 9.9 Seconds (9.9-11.8) 11/02/16 23:20 INR 0.92 (0.93-1.08) L 11/02/16 23:20 APTT 28.7 Seconds (23.7-30.8) 11/02/16 23:20 Sodium 144 mmol/L (132-148) 11/05/16 08:00 Potassium 3.4 mmol/L (3.6-5.0) L 11/05/16 08:00 Chloride 103 mmol/L (98-107) 11/05/16 08:00 Carbon Dioxide 28 mmol/L (21-33) 11/05/16 08:00 Anion Gap 16 (10-20) 11/05/16 08:00 BUN 18 mg/dL (7-21) 11/05/16 08:00 Creatinine 0.7 mg/dL (0.5-1.4) 11/05/16 08:00 Est GFR ( Amer) > 60 11/05/16 08:00 Est GFR (Non-Af Amer) > 60 11/05/16 08:00 Random Glucose 99 mg/dL (70-110) 11/05/16 08:00 Calcium 9.2 mg/dL (8.4-10.5) 11/05/16 08:00 Iron 122 ug/dL (45-180) 11/05/16 08:00 TIBC 273 ug/dL (261-462) 11/05/16 08:00 % Saturation 45 % (20-55) 11/05/16 08:00 Total Bilirubin 0.5 mg/dL (0.2-1.3) 11/02/16 23:20 AST 39 U/L (17-59) 11/02/16 23:20 ALT 48 U/L (7-56) 11/02/16 23:20 Alkaline Phosphatase 102 U/L (38-126) 11/02/16 23:20 Lactate Dehydrogenase 360 U/L (333-699) 11/03/16 10:03 Total Creatine Kinase 82 U/L (35-230) 11/03/16 10:03 Troponin I < 0.01 ng/mL 11/03/16 10:03 NT-Pro-B Natriuret Pep 42.4 pg/mL (0-450) 11/02/16 23:20 Total Protein 8.1 g/dL (5.8-8.3) 11/02/16 23:20 Albumin 4.5 g/dL (3.0-4.8) 11/02/16 23:20 Globulin 3.6 gm/dL 11/02/16 23:20 Albumin/Globulin Ratio 1.3 (1.1-1.8) 11/02/16 23:20 Triglycerides 58 mg/dL (35-160) 11/03/16 10:03 Cholesterol 222 mg/dL (130-200) H 11/03/16 10:03 LDL Cholesterol Direct 161 mg/dL (0-129) H 11/03/16 10:03 HDL Cholesterol 42 mg/dL (29-60) 11/03/16 10:03 Vitamin B12 236 pg/mL (239-931) L 11/05/16 08:00 Folate 9.1 ng/mL 11/05/16 08:00 TSH 3rd Generation 0.11 mIU/mL (0.46-4.68) L 11/03/16 10:03 - Hospital Course Hospital Course: A 60 year old male whose past medical history includes, presents to the emergency department with 2 day duration throat pain. The patient notes that he went to his PMD's office today and received a flu shot. He also notes that he is experiencing near syncopal sensation and shortness of breath and chest discomfort. He denies fevers, chills, headache, abdominal pain, nausea, vomiting , diarrhea, back pain, dyspnea on exertion, or any other complaint. Assessment: 60 yo male with presentation of cough, sore throat, chest pain. He received the influenza shot a day prior to hospitalization. Supportive care. On Rocephin for antibiotic therapy. No leukocytosis. No electrolyte abnormalities. Current Chest X-ray with no signs of active disease. Only scattered mucosal thickening of the sinuses on CT scan of the head but no other acute findings. CT of the neck showed no acute issues. troponins was negative and cleared by Cardiology, so discharge with up to 10 days of oral antibiotics such as Keflex 500mg PO TID. Moses cultures sent. negative pt had hemorrhoids Plan: is stool softeners sitz baths PRN pain control Discharge Exam - Head Exam Head Exam: NORMAL INSPECTION - Eye Exam Eye Exam: EOMI, Normal appearance, PERRL Pupil Exam: NORMAL ACCOMODATION, PERRL - GI/Abdominal Exam GI & Abdominal Exam: Normal Bowel Sounds - Rectal Exam Rectal Exam: NORMAL INSPECTION - Exam Exam: Circumcision, NORMAL INSPECTION External exam: NORMAL EXTERNAL EXAM Speculum exam: NORMAL SPECULUM EXAM Bimanual exam: NORMAL BIMANUAL EXAM - Neurological Exam Neurological exam: Alert, CN II-XII Intact, Normal Gait, Oriented x3, Reflexes Normal - Psychiatric Exam Psychiatric exam: Normal Affect, Normal Mood - Skin Skin Exam: Dry, Intact, Normal Color, Warm Discharge Plan - Discharge Medications Prescriptions: Cephalexin [cephalexin] 500 mg PO TID 10 Days Atorvastatin [Lipitor] 10 mg PO DIN 30 Days Methylprednisolone [Medrol Dose Pack (21 tabs)] 4 mg PO DAILY #21 mg Famotidine [Pepcid] 20 mg PO DAILY 30 Days Montelukast Sodium [Singulair] 10 mg PO DAILY 30 Days Ranitidine HCl [Zantac] 150 mg PO BID 30 Days Cetirizine HCl [Zyrtec] 10 mg PO DAILY 30 Days - Follow Up Plan Condition: FAIR Disposition: HOME/ ROUTINE Instructions: Angina (DC) Additional Instructions: Follow up with Dr. Russell on 11/08/16 at 5pm. Follow up with Dr. Jennings in 2 weeks for stress test. Take antibiotic as directed by your doctor, do not stop, do not miss a dose. Referrals: Sujey Russell MD [Staff Provider] - Barbara Jennings MD [Staff Provider] - Roland Bai MD [Primary Care Provider] -
--- NOTE | 2016-11-06 08:26 | HP ---
CHIEF COMPLAINT: Shortness of breath, body aches, coughing. HISTORY OF PRESENT ILLNESS: Mr. Cornelius Smith is 60 years old male with past medical history of hypertension. The patient came to the emergency room for two week duration of throat pain. The patient noticed that his pain is increasing. He went to his primary care physician office and received different shot. He also notice that he has experienced near syncopal transition, shortness of breath, chest discomfort, and body aches. No fever or chills. No abdominal pain. No nausea, vomiting, or diarrhea. No hematuria or hematochezia. PAST MEDICAL HISTORY: Hypertension. FAMILY HISTORY: Father and mother noncontributory. HABITS: Never smoked. No alcohol. No substance abuse. ALLERGIES: THE PATIENT IS NOT ALLERGIC WITH ANY MEDICATIONS. HOME MEDICATIONS: He does not remember. REVIEW OF SYSTEMS: The patient is seen and examined on the bedside in the telemetry, complaining about sore throat, near syncope, feeling shortness of breath, chest discomfort, body aches. No abdominal aches, no diarrhea. No nausea or vomiting. No dysuria. No progressive hematuria. No back pain. No neck pain. No focal weakness. PHYSICAL EXAMINATION: VITAL SIGNS: Temperature 97.6, pulse 74, blood pressure is 112/88, respiratory rate 18. HEENT: Head is normocephalic and atraumatic. Eyes, PERRLA. Extraocular muscles intact. Conjunctivae clear. Nose patent. Mucous membrane moist. NECK: Supple. No carotid bruit, JVD or thyromegaly. CHEST: Bilaterally symmetrical. HEART: S1 and S2 positive. LUNGS: Clear to auscultation. ABDOMEN: Soft. Bowel sounds present. No organomegaly. EXTREMITIES: No edema. No cyanosis. NEUROLOGIC: The patient is awake, alert. Moving all four extremities. No focal deficits. LABORATORY DATA: White blood cell 7.3, hemoglobin 15.7, hematocrit 40.0, platelets 219. Sodium 142, potassium 3.7, BUN 17, creatinine 0.8. AST 59, ALT 48, cholesterol 222, LDL 121, PSA 0.11. IMPRESSION AND PLAN: Mr. Cornelius Smith is 60 years old male with hypercholesterolemia, hyperthyroidism, anemia, came with chest pain, neck pain. Soft tissues. Neck CT done, feeling of near syncope. CAT scan of the head done. Chest x-ray done. Neck CAT scan is normal. No acute findings. CAT scan of the head reviewed by me. Echocardiography done. No acute intracranial abnormalities, incidental acute finding, scattered minimal mucosal thickening of the sinuses, may be the patient has sinusitis, readmitted the patient. Consult called by Dr. Jennings skin care technician, Dr. Cerna financial economist. Given ceftriaxone, Pepcid for GI prophylaxis, aspirin given in the ER, even clindamycin given. Continue present treatment. Waiting for skin care technician and financial economist input. We will follow up. Sujey Russell MD
== END 2016-11-05 12:35 | disposition home or self-care (01) | DRG 203 ==
LOC: ED 23:13 → ERH 11-03 04:04 → 2RNO 11-03 05:19 → 3RSO 11-03 19:11 → OBSVTOIN 11-04 16:26
PROVIDERS: ADMIT Internal Medicine; ATTEND Internal Medicine
DX: J20.9 Acute bronchitis, unspecified (principal); J06.9 Acute upper respiratory infection, unspecified; E05.90 Thyrotoxicosis, unspecified without thyrotoxic crisis or storm; E78.00 Pure hypercholesterolemia, unspecified; I08.1 Rheumatic disorders of both mitral and tricuspid valves; I10 Essential (primary) hypertension; D64.9 Anemia, unspecified; F17.200 Nicotine dependence, unspecified, uncomplicated; J32.9 Chronic sinusitis, unspecified; E78.5 Hyperlipidemia, unspecified; K64.8 Other hemorrhoids; K59.00 Constipation, unspecified; G47.30 Sleep apnea, unspecified; R07.89 Other chest pain